=== PATIENT | female | born 1935 | race Caucasian/White ===

== ENCOUNTER 2018-03-11 13:09 | Inpatient (IN) | payer MEDICARE ==
[2018-03-11] VITALS (12 sets, daily range): BP systolic 104–134; BP diastolic 49–73
[~2018-03-11] VITALS: Ht 172.7 cm; Wt 94.3 kg
[2018-03-11] MEDS ORDERED: AMLO2.5T2 PO (13:14)
[2018-03-11] MEDS ORDERED: ANAS1TAB47 PO (13:24)
[2018-03-11] MEDS ORDERED: ASPI-630 PO (13:25)
[2018-03-11] MEDS ORDERED: CALC-157 PO (13:27)
[2018-03-11] MEDS ORDERED: FLEC50TA PO (13:28)
[2018-03-11] MEDS ORDERED: METO50TA6 PO (13:32)
[2018-03-11] MEDS ORDERED: MULT-246 PO (13:39)
[2018-03-11] MEDS ORDERED: dilTIAZem VIAL 125 MG in IV DEXTROSE 5% 100 ML IV ONE (13:45)
[2018-03-11] MEDS ORDERED: ONDANSETRON PF 4 MG/2 ML VIAL. IV PRN (13:45)
--- NOTE | 2018-03-11 14:05 | HP ---
ADMIT DATE: 03/11/2018 HISTORY OF PRESENT ILLNESS: The patient is an 82-year-old female patient, who apparently has been complaining of nausea, vomiting, and diarrhea since last Monday and this morning she woke up with palpitation. She was also dizzy and lightheaded and complained of shortness of breath. She was evaluated at the [facility] Emergency Room, was found to be in atrial fibrillation with rapid ventricular response, was started on Cardizem drip; however, they do not have beds available and the patient does not want to go to the [facility] and therefore she was transferred to our facility for further evaluation and treatment. By the time I saw her, said she has had no further episode of nausea, vomiting, no diarrhea. She has continued to have some nausea, but has received Zofran and she actually has eaten her lunch and kept it. PAST MEDICAL HISTORY: Significant for two episodes of atrial fibrillation before. At one point in time, she was treated with Pradaxa for 6 months that was discontinued by her rn telehealth and was put on 2 baby aspirin tablets. Other medical problems include hypertension. She has breast cancer for which she required bilateral mastectomy. PAST SURGICAL HISTORY: Significant for bilateral cataract extraction, total abdominal hysterectomy and bilateral salpingo-oophorectomy. She has also had a breast biopsy. ALLERGIES: She has apparently no known drug allergies. MEDICATIONS: She is currently on following medications: She is on anastrozole for Arimidex 1 mg daily for her breast cancer, amlodipine besylate 2.5 mg once a day and aspirin 81 mg once a day. FAMILY HISTORY: She has one brother older and has atrial fibrillation. Her younger brother is alive and has permanent pacemaker placed. Her father at age of 73 because of lung disease as he was a coal minor and her mother at age of 85 as a complication of Alzheimer's disease. SOCIAL HISTORY: She lives with her adopted son. She never smoked, does not drink alcohol or use any recreational drugs. 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 PHYSICAL EXAMINATION: GENERAL: When I examined her, she was resting, slightly propped up in bed, in no apparent respiratory distress, slightly pale, but no jaundice, cyanosis or thyromegaly. No jugular venous distension. No limb edema. VITAL SIGNS: Her heart rate was 119, blood pressure 134/59, temperature was 98.3, respiratory rate was 18 and oxygen saturation was 97%. HEAD, EYES, EARS, NOSE AND THROAT: Showed normocephalic, atraumatic. NECK: Supple. HEART: Showed normal first and second heart sounds. No gallop, rub or murmur. CHEST: Clear to auscultation. No crepitation or rhonchi. ABDOMEN: Distended, soft, nontender. NEUROLOGIC: She was awake, alert, responding appropriately. All cranial nerves intact. EXTREMITIES: She moves extremities without difficulty. She ambulates without assistance or assistive devices. LABORATORY DATA: She has had lab work done at [facility], which showed that her prothrombin time was 14.8, INR of 1.2. Her serum sodium was 137, potassium 3.9, chloride 103, bicarbonate 27, anion gap of 7, calcium was 8.4, glucose 117, total protein was 6.9, albumin 3.5 and alkaline phosphatase was 91. Her AST, ALT were normal. Total bilirubin 0.9. BUN was 21, creatinine 0.9, estimated GFR was 72 mL per minute. Her white cell count this morning showed was 8000. Her hemoglobin was 15, hematocrit was 46, MCV 89 and a platelet count 215,000. IMPRESSION AND PLAN: In summary, this is an 82-year-old female patient, who we will continue with her flecainide and other medication that she is on, continue with the Cardizem drip. We will consult Cardiology team. I will repeat all her lab works tomorrow including her thyroid function test and I leave the decision about anticoagulation to the rn telehealth. PATRICE COVINGTON MD DR: JAMSHID/rosie JOB#: [id number] / [id number]
[2018-03-11] MEDS ORDERED: HEPARIN 25,000UTS/500ML PREMIX 500 ML IV PRN ×2 (14:45→15:30)
[2018-03-11] MEDS: FLECAINIDE 50 MG TABLET. PO SCH (21:08)
[2018-03-11] MEDS: METOPROLOL TART IMMED RELEASE 50 MG TABLET PO SCH (21:09)
[2018-03-12] VITALS (10 sets, daily range): BP systolic 113–133; BP diastolic 52–77
[2018-03-12 04:15] LABS: HEMATOCRIT 40.6 % (36.0-47.0); HEMOGLOBIN 13.2 g/dL (12.0-15.5); RED BLOOD COUNT 4.56 x10^6/uL (3.50-5.40); RED CELL DISTRIBUTION WIDTH 14.3 % (11.5-14.5); WHITE BLOOD COUNT 6.8 x10^3/uL (4.0-11.0)
[2018-03-12 04:30] LABS: ALBUMIN 2.5 g/dL (3.4-5.0); ALBUMIN/GLOBULIN RATIO 0.8 (1.0-1.7); CALCIUM 7.9 mg/dL (8.5-10.1); POTASSIUM 3.6 mmol/L (3.5-5.1); TOTAL BILIRUBIN 0.6 mg/dL (0.2-1.0); TOTAL PROTEIN 5.8 g/dL (6.4-8.2)
[2018-03-12] MEDS ORDERED: CALCIUM CARB/VIT D3 500/200 TABLET PO SCH (09:00)
[2018-03-12] MEDS ORDERED: ANASTROZOLE 1 MG TABLET PO SCH (09:00)
[2018-03-12] MEDS ORDERED: MULTIVITAMIN with MINERAL TABLET. PO SCH (09:00)
[2018-03-12] MEDS: METOPROLOL TART IMMED RELEASE 50 MG TABLET PO SCH (09:02)
[2018-03-12] MEDS: FLECAINIDE 50 MG TABLET. PO SCH (09:43)
--- NOTE | 2018-03-12 10:16 | PDOC2 ---
CONSULT Date of Admission DATE: 03/12/18 TIME: 10:14 Reason for Consult: atrial fibrillation with RVR. History of Present Illness Ms Sánchez is an 82 year old female with history of paroxysmal atrial fibrillation on flecanide and aspirin. She reports that she had a GI illness over the weekend with nausea, vomiting and diarrhea. She says she spent most of the weekend in bed. On Monday she was feeling a little better so she got up to go take a shower and reports a sudden on set of her heart racing and pounding and some numbness in her left arm. She was seen in the ED at [facility] and found to be in atrial fibrillation with RVR. They had no beds however so she was transported to [facility] for admission and management. She is currently resting quietly and remains in atrial fibrillation but with controlled ventricular response on cardizem drip. She denies chest pain, dyspnea, palpitations, lightheadedness or syncope. She denies congestive symptoms. She has a follow up appt in about a week with her primary phone screener at . Cardiovascular: AFIB, HTN Heme/Onc: Cancer (breast cancer s/p bilateral mastectomy) Past Surgical History: Mastectomy, Hysterectomy Family History: Alzheimer's Disease, Other (lung disease, no coronary disease) Social History non smoker, no illicit drugs, no significant ETOH Current Medications Current Medications Diltiazem HCl 125 mg/Dextrose 125 ml @ 5 mls/hr 1X ONCE IV Last administered on 03/11/18at 17:19; Start 03/11/18 at 13:45; Stop 03/12/18 at 14:44 Ondansetron HCl (Zofran) 4 mg PRN Q4HRS PRN IV NAUSEA/VOMITING; Start at 13:45 Calcium/Vitamin D (Oscal D 500mg/ 200uts) 1 tab DAILY PO Last administered on 03/12/18at 09:01; Start 03/12/18 at 09:00 Anastrozole (Arimidex) 1 mg DAILY PO ; Start 03/12/18 at 09:00 Flecainide Acetate (Tambocor) 50 mg BID PO Last administered on 03/12/18at 09: 43; Start 03/11/18 at 21:00 Multivitamins/ Calcium (Thera-M Plus) 1 tab DAILY PO Last administered on 03/12at 09:02; Start 03/12/18 at 09:00 Metoprolol Tartrate (Lopressor) 50 mg BID PO Last administered on 03/12/18at 09 :02; Start 03/11/18 at 21:00 Heparin Sodium/ Dextrose 500 ml @ 0 mls/hr CONT PRN IV SEE I/O RECORD; Start 03/11/18 at 14:45; Stop 03/11/18 at 15:34; Status DC Heparin Sodium/ Dextrose 500 ml @ 0 mls/hr CONT PRN IV SEE I/O RECORD Last administered on 03/11/18at 15:48; Start 03/11/18 at 15:30 Active Scripts Active Reported Multi-Vitamin Daily (Multivitamin) 1 Each Tablet 1 Each PO DAILY Metoprolol Tartrate 50 Mg Tablet 1 Tab PO BID Flecainide Acetate 50 Mg Tablet 50 Mg PO BID Calcium 500 + Vit D 200 Tablet (Calcium Carbonate/Vitamin D3) 1 Each Tablet 1 Each PO DAILY Aspirin 81 Mg Tab.chew 81 Mg PO DAILY Arimidex (Anastrozole) 1 Mg Tablet 1 Tab PO DAILY Norvasc (Amlodipine Besylate) 2.5 Mg Tablet 1 Tab PO DAILY Allergies: Coded Allergies: No Known Drug Allergies (Unverified , 03/11/18) Review of System as per HPI or negative General: Alert, Oriented X3, Cooperative, No acute distress HEENT: Atraumatic, EOMI, Mucous membr. moist/pink Heart: Other (irregularly irregular, no gallops, clicks or rubs) Abdomen: Normal bowel sounds, Soft, No tenderness Extremities: No cyanosis, No edema, Normal pulses Neuro: Normal speech, Strength at 5/5 X4 ext Psych/Mental Status: Mental status NL, Mood NL VITALS Vital Signs Date Time Temp Pulse Resp B/P (MAP) Pulse Ox O2 Delivery O2 Flow Rate FiO2 03/12/18 09:43 70 122/62 03/12/18 09:00 97.9 18 95 Room Air 03/12/18 08:05 1.0 Labs Laboratory Tests Test 03/11/18 14:55 03/11/18 21:55 03/12/18 04:00 Prothrombin Time 12.4 SEC (9.4-11.4) Prothromb Time International Ratio 1.3 (0.9-1.1) Activated Partial Thromboplast Time 26 SEC (23-33) 89 SEC (23-33) 124 SEC (23-33) White Blood Count 6.8 x10^3/uL (4.0-11.0) Red Blood Count 4.56 x10^6/uL (3.50-5.40) Hemoglobin 13.2 g/dL (12.0-15.5) Hematocrit 40.6 % (36.0-47.0) Mean Corpuscular Volume 89 fL (79-100) Mean Corpuscular Hemoglobin 29 pg (25-35) Mean Corpuscular Hemoglobin Concent 33 g/dL (31-37) Red Cell Distribution Width 14.3 % (11.5-14.5) Platelet Count 205 x10^3/uL (140-400) Sodium Level 141 mmol/L (136-145) Potassium Level 3.6 mmol/L (3.5-5.1) Chloride Level 103 mmol/L (98-107) Carbon Dioxide Level 27 mmol/L (21-32) Anion Gap 11 (6-14) Blood Urea Nitrogen 21 mg/dL (7-20) Creatinine 1.0 mg/dL (0.6-1.0) Estimated GFR (Cockcroft-Gault) 53.0 BUN/Creatinine Ratio 21 (6-20) Glucose Level 110 mg/dL (70-99) Calcium Level 7.9 mg/dL (8.5-10.1) Magnesium Level 2.0 mg/dL (1.8-2.4) Total Bilirubin 0.6 mg/dL (0.2-1.0) Aspartate Amino Transf (AST/SGOT) 33 U/L (15-37) Alanine Aminotransferase (ALT/SGPT) 38 U/L (14-59) Alkaline Phosphatase 84 U/L (46-116) Total Protein 5.8 g/dL (6.4-8.2) Albumin 2.5 g/dL (3.4-5.0) Albumin/Globulin Ratio 0.8 (1.0-1.7) Images EKG Assessment/Plan 1. Atrial fibrillation, paroxysmal - rate controlled on cardizem drip. Suggest continue home flecanide and increase metoprolol for rate control. check echo structural abn and LV function. [id number] =2. recommend OAC until she follows with primary phone screener next [place] as scheduled 2. Hypertension - controlled on current meds 3. unknown lipid status, check lipids. CORBY HARDIN MANAGER OPERATING Mar 12, 2018 10:16
[2018-03-12] MEDS ORDERED: APIXABAN 5 MG TABLET. PO SCH (12:00)
[2018-03-12] MEDS ORDERED: APIX5TAB3 PO (13:08)
--- NOTE | 2018-03-12 13:26 | DS ---
DATE OF DISCHARGE: 03/12/2018 HOSPITAL COURSE: The patient is an 82-year-old female patient, who was admitted with another episode of atrial fibrillation with rapid ventricular response. She apparently has had recurrent bouts of nausea, vomiting, and diarrhea. Apparently, has not taken her medications that include metoprolol and flecainide. She was started on Cardizem drip and her symptom has subsided. She was given metoprolol and flecainide and her heart rate remains well controlled. She was started on Eliquis. She was seen in consultation by the assistant clinical nurse manager, who recommended to continue on her metoprolol and flecainide and added the Eliquis and she should follow with her primary physician and assistant clinical nurse manager. When I saw her today, she denied any further nausea or vomiting. Denied any diarrhea. Denied any chest pain or shortness of breath. OBJECTIVE: GENERAL: When I examined her, she looked well and was clearly in no apparent respiratory distress, pale, but no jaundice, cyanosis, or thyromegaly. No jugular venous distension. No limb edema. VITAL SIGNS: Her heart rate was 76, blood pressure was 117/52, temperature was 97.9, respiratory rate was 18 and oxygen saturation was 95%. HEAD, EYES, EARS, NOSE AND THROAT: Showed normocephalic, atraumatic. NECK: Supple. HEART: Showed normal first and second heart sounds with no gallop, rub or murmur. CHEST: Clear to auscultation. No crepitation or rhonchi. ABDOMEN: Distended, soft, nontender. No guarding or rigidity. No organomegaly. All hernial orifices intact. Bowel sounds normal. NEUROLOGIC: She was awake, alert, responding appropriately. All cranial nerves intact. EXTREMITIES: She moves extremities without difficulty. She ambulates without assistance or assistive devices. LABORATORY DATA: Her lab work this morning showed a white cell count 6800, hemoglobin 13, hematocrit 41, MCV 89 and platelet count 205,000. Serum sodium was 141, potassium 3.6, chloride 103, bicarbonate 27, anion gap of 11, BUN 21, creatinine 1, estimated GFR was 53 mL per minute. Her glucose 110, calcium was 7.9, magnesium 2. Total bilirubin, AST, ALT, alkaline phosphatase were normal. Her total protein was 5.8, albumin 2.5. TSH was 2.532. Prothrombin time was 12.4, INR 1.3 and aPTT was 26. Her heparin drip was discontinued, her Cardizem drip was discontinued. DISCHARGE MEDICATIONS: She will be discharged home to continue on Eliquis 10 mg twice a day for one week and then 5 mg twice a day indefinitely, amlodipine besylate 2.5 mg once a day, Arimidex 1 mg once a day, aspirin 81 mg daily, calcium carbonate with vitamin D one tablet once a day, flecainide for Tambocor 50 mg twice a day, metoprolol tartrate 50 mg twice a day, multivitamin 1 tablet once a day. ASSESSMENT: Acute gastroenteritis, resolved, paroxysmal atrial fibrillation. The patient was treated with Cardizem drip and heparin drip and is now back on flecainide and metoprolol. Her heart rate is well controlled. She is anticoagulated on Eliquis. Other medical problems include bilateral breast cancer, status post bilateral mastectomy, hyperlipidemia as well as hypertension. PATRICE COVINGTON MD DR: JAMSHID/rosie JOB#: [id number] / [id number]
--- NOTE | 2018-03-12 13:46 | CARD ---
MR#: [id number] Date of Study: 03/12/2018 Ordering Physician: CORBY HARDIN, Referring Physician: PATRICE COVINGTON, Tech: Temi Pak APPROVED REPORT EXAM: Two-dimensional and M-mode echocardiogram with Doppler and color Doppler. Other Information Quality : AverageHR: 83bpm INDICATION Atrial Fibrillation 2D DIMENSIONS RVDd1.6 (2.9-3.5cm)Left Atrium(2D)4.1 (1.6-4.0cm) IVSd1.2 (0.7-1.1cm)Aortic Root(2D)2.7 (2.0-3.7cm) LVDd5.3 (3.9-5.9cm)LVOT Diameter2.0 (1.8-2.4cm) PWd1.2 (0.7-1.1cm)LVDs2.6 (2.5-4.0cm) FS (%) 49.7 %SV107.7 ml LVEF(%)80.7 (>50%) Aortic Valve AoV Peak Jb.148.1cm/sAoV VTI26.3cm AO Peak GR.8.8mmHgLVOT Peak Jb.91.0cm/s LVOT VTI 19.88cmAO Mean GR.5mmHg FLOR (VMAX)2.16dg9ITF (VTI)2.48cm2 Pulmonary Valve PV Peak Tgbvqtmx833.4cm/sPV Peak Grad.5mmHg Tricuspid Valve TR P. [id number] [id number] TR Peak Gr.[id number] LEFT VENTRICLE The left ventricle is normal size. There is mild concentric left ventricular hypertrophy. The left ve ntricular systolic function is normal. The ejection fraction is estimated at 60%. There is normal LV segmental wall motion. Diastology indeterminent due to atrial fibrillation. RIGHT VENTRICLE The right ventricle is normal size. There is normal right ventricular wall thickness. The right ventr icular systolic function is normal. ATRIA The left atrium size is normal. The right atrium size is normal. The interatrial septum is intact wit h no evidence for an atrial septal defect or patent foramen ovale as noted on 2-D or Doppler imaging. AORTIC VALVE The aortic valve is thickened but opens well. Doppler and Color Flow revealed trace aortic regurgitat ion. There is no significant aortic valvular stenosis. MITRAL VALVE The mitral valve is mildly thickened. There is no evidence of mitral valve prolapse. There is no mitr al valve stenosis. Doppler and Color-flow revealed trace mitral regurgitation. TRICUSPID VALVE The tricuspid valve is not well visualized. Doppler and Color Flow revealed mild tricuspid regurgitat ion. There is no tricuspid valve stenosis. PULMONIC VALVE The pulmonic valve is not well visualized. Doppler and Color Flow revealed mild pulmonic valvular reg urgitation. GREAT VESSELS The aortic root is normal in size. The IVC is normal in size and collapses >50% with inspiration. PERICARDIAL EFFUSION There is no evidence of significant pericardial effusion. Critical Notification Critical Value: No <Conclusion> The left ventricular systolic function is normal. The ejection fraction is estimated at 60%. There is normal LV segmental wall motion. Trace mitral regurgitation. Mild tricuspid regurgitation. There is no evidence of significant pericardial effusion. Signed by : Luis Alberto Aviles, Electronically Approved : 03/12/2018 13:44:48
[2018-03-12] MEDS ORDERED: METOPROLOL TART IMMED RELEASE 50 MG TABLET PO SCH (21:00)
== END 2018-03-12 14:18 | disposition home or self-care (01) | DRG 391 ==
LOC: ICU 13:09
PROVIDERS: ADMIT Internal Medicine; ATTEND Internal Medicine
DX: K52.9 Noninfective gastroenteritis and colitis, unspecified (principal); E43 Unspecified severe protein-calorie malnutrition; C50.911 Malignant neoplasm of unspecified site of right female breast; C50.912 Malignant neoplasm of unspecified site of left female breast; E78.5 Hyperlipidemia, unspecified; I10 Essential (primary) hypertension; I48.0 Paroxysmal atrial fibrillation; Z79.01 Long term (current) use of anticoagulants; Z82.0 Family history of epilepsy and other diseases of the nervous system; Z85.3 Personal history of malignant neoplasm of breast; Z90.13 Acquired absence of bilateral breasts and nipples; Z90.710 Acquired absence of both cervix and uterus; Z98.41 Cataract extraction status, right eye; Z98.42 Cataract extraction status, left eye; Z79.899 Other long term (current) drug therapy
CPT/HCPCS: 36415; 80053; 83735; 84443; 85027; 85610; 85730; 87641; 93306; J3490

== ENCOUNTER → 2021-02-25 | Outpatient (CLI) | payer MEDICARE ==
[2018-03-12 11:00] VITALS: BP 117/52
[~2021-02-25] MED LIST: AMLO2.5T2 PO; ANAS1TAB47 PO; APIX5TAB3 PO; ASPI-630 PO; CALC-157 PO; FLEC50TA PO; METO50TA6 PO; MULT-246 PO
--- NOTE | 2021-02-25 17:01 | RAD ---
EXAM: Dual energy x-ray absorptiometry (DEXA). HISTORY: Postmenopausal. COMPARISON: None. TECHNIQUE: Dual energy x-ray absorptiometry of the lumbar spine and right hip was performed. Calcula tion of bone mineral density based on standard deviations above or below the expected young adult nor mal value (T-score) was completed. FINDINGS: LUMBAR SPINE: The AVG BMD OF the L1-L4 region = 1.087 gm/cm2, T-score = -0.8, Z-score = 0.3. Findings are consistent with normal BMD. Femoral Neck: The BMD of the right femoral neck = 0.826 gm/cm2, T-score = -1.5, Z-score = 0.4. The Findings are consistent with osteopenia. IMPRESSION: 1. There is normal bone mineral density in the spine and osteopenia in the right femoral neck Electronically signed by: Brant Goldsmith MD (02/25/2021 4:59 PM) [id number]
== END ==
LOC: DXRAD 12:59
PROVIDERS: ATTEND Internal Medicine Hematology & Oncology
DX: M85.88 Other specified disorders of bone density and structure, other site (principal)
CPT/HCPCS: 77080